=== PATIENT | female | born 1970 | race Asian ===

== ENCOUNTER 2020-05-22 08:02 | Emergency (ER) | payer OTHER, SELFPAY ==
[2020-05-22 08:16] VITALS: BP 141/105; PULSE 68; RESP 18; TEMP 37.3; O2SAT 95; BMI 22.3
--- NOTE | 2020-05-22 09:17 | ED_ITS ---
HPI - General Adult General Chief complaint: Blood/Body fluid exposure Stated complaint: needle stick Time Seen by Provider: 05/22/20 08:22 Source: patient Mode of arrival: Ambulatory Limitations: no limitations History of Present Illness HPI narrative: Otherwise healthy 49-year-old woman who works at [email or web address]. Was giving a resident an insulin injection and when removing the tip from the insulin pen poked her right middle finger. It did penetrate the epidermis but reportedly did not go much deeper than that. She allowed it to bleed freely and washed it thoroughly. Related Data Allergies Allergy/AdvReac Type Severity Reaction Status Date / Time cephaeline Allergy Verified 05/22/20 08:16 Review of Systems Review of Systems Narrative: No recent fever, cough, chills, chest pain, shortness of breath, abdominal pain, diarrhea or dysuria Patient History Social History Smoking Status: Never smoker Smoking Status: Never smoker alcohol intake frequency: 0-2 drinks per day Substance Use Type: does not use Exam Narrative Exam Narrative: General: Alert appropriate in no acute distress Respiratory: Able to speak in full sentences, no obvious respiratory distress Skin: No obvious rashes, warm and dry Neurologic: Grossly intact no obvious asymmetries or abnormalities Psych, appropriate insight and affect, cooperative Extremity: Small needle stick on the thenar side of the right middle finger with no hematoma, continued bleeding or surrounding erythema Initial Vital Signs Initial Vital Signs: Vital Signs Temperature 99.2 F 05/22/20 08:16 Pulse Rate 68 05/22/20 08:16 Respiratory Rate 18 05/22/20 08:16 Blood Pressure 141/105 H 05/22/20 08:16 Pulse Oximetry 95 05/22/20 08:16 Course Orders Ordered: ED Orders 05/22/20 09:02 Comprehensive Metabolic Panel Stat HIV 1 & 2 Ab/Ag 4th Gen Combo Stat Hep C Virus Ab w/Reflex Quant Stat Vital Signs Vital signs: Vital Signs - 8 hr 05/22/20 08:16 Temperature 99.2 F Pulse Rate 68 Respiratory Rate 18 Blood Pressure 141/105 H Pulse Oximetry 95 Medical Decision Making Medical Records Medical records reviewed: Yes I reviewed the patient's medical records. MDM Narrative Medical decision making narrative: 49-year-old woman with needle exposure diabetic needle from an insulin pen. Will check baseline labs on the patient including hepatitis B surface antibody (the patient believe she was immunized in the [facility] but is not sure in does not recall if she has been tested for immunity), HIV, hep C antibodies and a chemistry panel to look at liver studies. Contacted need the nurse at [facility]. They will follow-up on the contact patient side with chart review and patient testing as needed. Patient is safe to return to work with no restrictions. Jacob I forms are completed. Discharge Plan Departure Patient Disposition: Home Clinical Impression: Accidental needlestick injury with exposure to body fluid Instructions: DI for Accidental Exposure to Body Fluids Activity Restrictions/Additional Instructions: Thank you for coming in today Your blood was drawn to look for hepatitis B antibodies, hepatitis C, HIV as well as baseline liver testing. We contacted staff at [facility] [place], they will follow-up on the contact source regarding medical history and appropriate testing. Please refer to their protocols and your primary physician for follow-up on your testing. I wish you the best
[2020-05-22 09:53] VITALS: BP 137/88; PULSE 71; RESP 18; O2SAT 98
[2020-05-22 10:22] LABS: Alanine Aminotransferase 28 IU/L (<35); Albumin 4.6 g/dL (3.5-5.0); Albumin Globulin Ratio 1.2 (1.0-2.8); Alkaline Phosphatase 115 U/L (38-126); Aspartate Aminotransferase 27 IU/L (14-36); BUN Creatinine Ratio 23.7 (6-22); Bilirubin Total 0.6 mg/dL (0.2-1.3); Blood Urea Nitrogen 14 mg/dL (7-17); Calcium 9.5 mg/dL (8.4-10.2); Carbon Dioxide 29 mmol/L (22-32); Chloride 105 mmol/L (98-107); Estimated Glomerular Filt Rate > 60.0 mL/min (>60); Globulin 3.7 g/dL (1.7-4.1); Glucose 109 mg/dL (70-100); HEMOLYSIS < 15 (0-50); Potassium 3.8 mmol/L (3.4-5.1); Sodium 140 mmol/L (137-145); Total Protein 8.3 g/dL (6.3-8.2)
[2020-05-22 10:33] LABS: Alanine Aminotransferase 28 IU/L (<35)
[2020-05-22 10:57] LABS: Hepatitis B Surface Antigen NEGATIVE s/c (NEGATIVE)
[2020-05-22 11:11] LABS: HIV 1 & 2 Ab/Ag 4th Gen Combo NEGATIVE (NEGATIVE); Hep C Virus Ab w/Reflex Quant NEGATIVE s/c (NEGATIVE)
[2020-05-22 11:13] LABS: HIV 1 & 2 Ab/Ag 4th Gen Combo NEGATIVE (NEGATIVE); Hep C Virus Ab w/Reflex Quant NEGATIVE s/c (NEGATIVE)
[2020-05-23 07:24] LABS: Hepatitis B Surf Ab Qualitativ Non Reactive (.)
== END 2020-05-22 09:53 | disposition home or self-care (01) ==
PROVIDERS: Emergency Provider Emergency Medicine
DX: Z77.21 Contact with and (suspected) exposure to potentially hazardous body fluids (principal); W46.1XXA Contact with contaminated hypodermic needle, initial encounter; Y99.0 Civilian activity done for income or pay
CPT/HCPCS: 36415; 80053; 84460; 86706; 86803; 87340; 87389; 99283

== ENCOUNTER 2023-09-21 09:32 | Emergency (ER) | payer OTHER, SELFPAY ==
[2023-09-21 09:33] VITALS: BP 175/93; PULSE 68; RESP 15; TEMP 37.1; O2SAT 97; BMI 22.3
--- NOTE | 2023-09-21 10:48 | ED_ITS ---
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 She was trying to give insulin when she accidentally poked her left thumb with a needle. No obvious bleeding. She was unsure of the patient's vaccination status is. She states that she has been vaccinated and fully immunized. She denies any symptoms. No significant pain or decreased range of motion thumb. Related Data Allergies Allergy/AdvReac Type Severity Reaction Status Date / Time Cephalosporins Allergy Verified 09/21/23 09:40 Review of Systems <YOLETTE Santana Last Filed: 09/21/23 11:02> Review of Systems Narrative: GENERAL: Denies chills, fatigue, malaise, fever, sweats. HEENT: Denies sinus pain, ear pain, sore throat, difficulty swallowing, dizziness. RESPIRATORY: Denies dyspnea, cough, wheezing, hemoptysis, sputum. CARDIOVASCULAR: Denies chest pain, palpitations, orthopnea, edema, GASTROINTESTINAL: Denies nausea, vomiting, abdominal pain, diarrhea, constipation, melena. : Denies dysuria, frequency, incontinence, hematuria, urinary retention. MUSCULOSKELETAL: denies weakness, joint pain, or bony pain SKIN: Needle stick injury to the left thumb NEUROLOGIC: Denies weakness, headache, numbness, change in speech, confusion, seizures, incoordination. PSYCHIATRIC: No concerning psychosocial issues. 12 point review of systems is negative except for those stated above Patient History <Daniel Howard PA-C - Last Filed: 09/21/23 11:02> Social History Smoking Status: Never smoker Smoking Status: Never smoker alcohol intake frequency: holidays/special occasions only Substance Use Type: does not use Exam <YOLETTE Santana Last Filed: 09/21/23 11:02> Narrative Exam Narrative: GENERAL: Well-developed patient, in mild distress. HEAD: Atraumatic. Normocephalic. EYES: Pupils equal round and reactive. Extraocular motions intact. No scleral icterus. No injection or drainage. ENT: Nose without bleeding, purulent drainage. Throat without erythema, tonsillar hypertrophy or exudate. Airway patent. NECK: Trachea midline. Non tender EXTREMITIES: No edema or joint tenderness. NEURO: AOx3. SKIN: Very small area of erythema where the needle punctured the pad of the left thumb, no bleeding or decreased range of motion Initial Vital Signs Initial Vital Signs: Vital Signs Temperature 98.7 F 09/21/23 09:33 Pulse Rate 68 09/21/23 09:33 Respiratory Rate 15 09/21/23 09:33 Blood Pressure 175/93 H 09/21/23 09:33 Pulse Oximetry 97 09/21/23 09:33 Oxygen Delivery Method Room Air 09/21/23 09:33 <Alejandrina Costello DO - Last Filed: 09/23/23 11:20> Initial Vital Signs Initial Vital Signs: Vital Signs Temperature 98.7 F 09/21/23 09:33 Pulse Rate 68 09/21/23 09:33 Respiratory Rate 15 09/21/23 09:33 Blood Pressure 175/93 H 09/21/23 09:33 Pulse Oximetry 97 09/21/23 09:33 Oxygen Delivery Method Room Air 09/21/23 09:33 Course <Daniel Howard PA-C - Last Filed: 09/21/23 11:02> Orders Ordered: Discontinued Medications Diphtheria/Tetanus/Acell Pertussis (Tet,Diph,Pertuss(Acell),Vac/Pf 0.5 Ml Syringe) 0.5 ml IM .ONCE ONE Stop: 09/21/23 10:57 Last Admin: 09/21/23 11:32 Dose: 0.5 ml Documented By: CITLALY Vital Signs Vital signs: Vital Signs - 8 hr 09/21/23 09:33 Temperature 98.7 F Pulse Rate 68 Respiratory Rate 15 Blood Pressure 175/93 H Pulse Oximetry 97 Oxygen Delivery Method Room Air <Alejandrina Costello DO - Last Filed: 09/23/23 11:20> Orders Ordered: Discontinued Medications Diphtheria/Tetanus/Acell Pertussis (Tet,Diph,Pertuss(Acell),Vac/Pf 0.5 Ml Syringe) 0.5 ml IM .ONCE ONE Stop: 09/21/23 10:57 Last Admin: 09/21/23 11:32 Dose: 0.5 ml Documented By: CITLALY Vital Signs Vital signs: Vital Signs - 8 hr 09/21/23 09:33 Temperature 98.7 F Pulse Rate 68 Respiratory Rate 15 Blood Pressure 175/93 H Pulse Oximetry 97 Oxygen Delivery Method Room Air Medical Decision Making <Daniel Howard PA-C - Last Filed: 09/21/23 11:02> Lab Data Labs: Lab Results 09/21/23 Range/Units 11:24 ALT 27 (<35) IU/L Hepatitis C Antibody Negative (NEGATIVE) s/c HIV 1&2 Ab/P24 Ag 4thGn Negative (NEGATIVE) MDM Narrative Medical decision making narrative: ED course: This is a 53-year-old female presents to the emergency department due to a needlestick injuries to the left thumb. She was fully vaccinated other than tetanus but does not know the status of the patient that she was using the needle width. We will order HIV, hepatitis-C, hepatitis B, and liver enzymes and tetanus. Please call the patient to follow up with the results when they are available. No significant decreases in sensation and movement of the thumb. CC: Needle stick injury Complicating co-morbidities: None Data collected from: Previous notes Medical records reviewed: Patient was last seen in the emergency department 3 years ago due to a needlestick exposure while working at [employer]. CMP, HIV 1 and 2 ABG 4th generation combo, hep C virus antibody with reflex ordered. Differential considered, but not limited to: HIV, hepatitis-C, hepatitis-B Exam documented above, pertinent findings include: No concerning decreases in range of motion or bleeding from the thumb Lab Test results independently reviewed as above. Pertinent findings: None available at time of discharge Imaging studies independently reviewed: None obtained Scores Used: None MIPS Elements: None Consultations: None Treatments: Tetanus Re-evaluations: None Discussion: Discussed plan with the patient was comfortable with the plan Diagnosis: Needlestick injury Disposition: see below, along with detailed discharge instructions that have been reviewed with patient as well as indications for ED re-evaluation and additional outpatient follow up <Alejandrina Costello DO - Last Filed: 09/23/23 11:20> Lab Data Labs: Lab Results 09/21/23 Range/Units 11:24 ALT 27 (<35) IU/L Hepatitis C Antibody Negative (NEGATIVE) s/c HIV 1&2 Ab/P24 Ag 4thGn Negative (NEGATIVE) Discharge Plan Departure Patient Disposition: Home Clinical Impression: Needlestick injury accident Instructions: DI for Accidental Exposure to Body Fluids Activity Restrictions/Additional Instructions: Thank you for coming to the [facility] Emergency Department today. As we discussed there is a low likelihood that you have received any blood borne illnesses but we will check for HIV, hepatitis-C, hepatitis-B, and your liver enzymes. We have also updated tetanus. We will call you if any changes need to happened with the current treatment plan. Please return to the emergency department if you develop any nausea, vomiting, or any other concerning signs or symptoms. I hope you feel better soon. Please follow up with your primary care provider within a week if your symptoms continue. If you do not have a primary care provider please contact the [facility] Resource line at [phone]. They will ask some questions about your medical history and help you get set up with a provider in the community. Stand Alone Forms: Patient Portal/API ED Sign-out <Alejandrina Costello, - Last Filed: 09/23/23 11:20> Cosign ED Attending Germanature Attestation: I was immediately available in the department for consultation.
[2023-09-21] MEDS: TET,DIPH,PERTUSS(ACELL),VAC/PF 0.5 ML SYRINGE IM (11:32)
[2023-09-21 11:44] LABS: Alanine Aminotransferase 27 IU/L (<35)
[2023-09-21 11:46] VITALS: BP 141/92; PULSE 64; RESP 16; TEMP 36.8; O2SAT 99
[2023-09-21 12:53] LABS: HIV 1 & 2 Ab/Ag 4th Gen Combo NEGATIVE (NEGATIVE); Hep C Virus Ab w/Reflex Quant NEGATIVE s/c (NEGATIVE)
[2023-09-23 15:31] LABS: Hepatitis B Surf Ab Qualitativ Non Reactive (.)
== END 2023-09-21 11:46 | disposition home or self-care (01) ==
PROVIDERS: Emergency Provider Physician Assistant Medical
DX: S69.92XA Unspecified injury of left wrist, hand and finger(s), initial encounter (principal); W46.0XXA Contact with hypodermic needle, initial encounter; Z23 Encounter for immunization
CPT/HCPCS: 36415; 84460; 86706; 86803; 87389; 90471; 99283; 90715